=== PATIENT | female | born 1975 | race Caucasian/White ===

== ENCOUNTER 2017-09-12 08:20 | Emergency (ER) | payer OTHER ==
[~2017-09-12] VITALS: Ht 170.2 cm; Wt 134.7 kg
[~2017-09-12 08:20] MED LIST: AUGMENTIN 500-1 EACH PO; CORTISPORIN OTI10 M2 OT; HYDROCODON-ACE1 EAC7 PO; HYDROXYCHLOROQ200 M1; IBUPROFEN 200200 M1 PO; MOBIC15 MG PO; NEURONTIN 300300 M1
[2017-09-12 08:48] LABS: ABSOLUTE EOSINOPHILS 0.1 thou/uL (0.0-0.7); ABSOLUTE MONOCYTES 0.4 thou/uL (0.0-1.2); ABSOLUTE NEUTROPHILS 2.4 thou/uL (1.6-8.1); BASOPHILS 0.7 %; EOSINOPHILS 1.8 %; HEMATOCRIT 39.1 % (37.0-47.0); HEMOGLOBIN 13.3 gm/dL (12.0-15.0); LYMPHOCYTES 26.2 %; MCH 31.3 pg (26.0-34.0); MCHC 33.9 g/dL (28.0-37.0); MCV 92.4 fL (80.0-100.0); MONOCYTES 9.8 %; MPV 9.2 fl. (7.2-11.1); NUCLEATED RBCS 0 /100WBC; PLATELET COUNT* 169 thou/uL (150-400); POLYS 61.5 %; RBC 4.23 mil/uL (4.20-5.00); RDW-CV 13.8 % (10.5-14.5)
[2017-09-12 09:00] LABS: ANION GAP 10 mmol/L (7-16); BUN 22 mg/dL (7-18); CALCIUM 9.1 mg/dL (8.5-10.1); CHLORIDE 105 mmol/L (98-107); CO2 24 mmol/L (21-32); CREATININE 0.7 mg/dL (0.6-1.3); GLUCOSE 97 mg/dL (70-99); POTASSIUM 4.1 mmol/L (3.5-5.1); SODIUM 139 mmol/L (136-145)
[2017-09-12 09:05] LABS: ALBUMIN 3.8 g/dL (3.4-5.0); ALKALINE PHOSPHATASE 51 U/L (46-116); SGOT 16 U/L (15-37); SGPT 28 U/L (30-65); TOTAL BILIRUBIN 0.4 mg/dL (<0.1-1.0); TOTAL PROTEIN 7.3 g/dL (6.4-8.2); TROPONIN-I LEVEL <0.06 ng/mL (<0.06)
[2017-09-12 10:03] VITALS: BP 130/53
--- NOTE | 2017-09-12 17:31 | EKG ---
[place] [address] ELECTROCARDIOGRAM REPORT Name: LUCILLEJANETH WILKINSON [id number] Admission: 09/12/17 Attend Phys: Discharge: 09/12/17 Date of : 73 Report #: [id number] THIS REPORT FOR: //name// [facility] ED Test Date: 2017-09-12 Test Time: 08:38:14 Pat Name: JANETH ADKINS Department: Room: Gender: F Tax Compliance Manager: CASSANDRA : 1975 Requested By: Antonio White Order Number: [id number] MD: Michael Silva Measurements Intervals [place] Rate: 64 P: 12 HI: 174 QRS: 5 QRSD: 98 T: 32 QT: 393 QTc: 406 Interpretive Statements Sinus rhythm No previous ECG available for comparison Electronically Signed On 09-12-2017 17:31:35 CDT by Michael Silva [email or web address] <ELECTRONICALLY SIGNED> By: Michael Silva MD, [facility] 09/12/17 1731 0838 0838 Michael Silva MD, FACC /EPI
== END 2017-09-12 10:03 | disposition home or self-care (01) ==
LOC: M.ERS 08:20
PROVIDERS: Emergency Medicine Emergency Medical Services
DX: I95.1 Orthostatic hypotension (principal); M79.7 Fibromyalgia

== ENCOUNTER 2018-10-31 22:34 | Emergency (ER) | payer OTHER ==
[~2018-10-31] VITALS: Ht 170.2 cm; Wt 139.3 kg
[2018-10-31 22:39] VITALS: BP 149/79
[2018-10-31] MEDS ORDERED: NAPROXEN250 MG PO (22:43)
[2018-10-31] MEDS ORDERED: HYDROXYCHLOROQ200 M1 PO (22:43)
[2018-10-31] MEDS ORDERED: UNICOMPLEX M TA1 TA1 PO (22:43)
[2018-10-31] MEDS ORDERED: NORCO 5-325 TA1 EAC1 PO (23:10)
== END 2018-10-31 23:15 | disposition home or self-care (01) ==
LOC: M.ERS 22:34
DX: M25.562 Pain in left knee (principal); M79.7 Fibromyalgia; Z98.890 Other specified postprocedural states

== ENCOUNTER 2020-04-02 06:53 | Inpatient (IN) | payer BC ==
[~2020-04-02] VITALS: Ht 170.2 cm; Wt 151.0 kg
--- NOTE | ~2020-04-02 | OP ---
[facility] [address] [place] [address] OPERATIVE REPORT Name: JANETH ADKINS Room: [address] IN M.R.#: [id number] Admission: 04/02/20 Attend Phys: Isabela Pineda Discharge: 04/07/20 Date of : 73 Report #: [id number] THIS REPORT FOR: cc: RAN LEWIS KEVIN ~ Kramer, Adam P. DO DICTATED BY: Mohamud Gandara DO On behalf of Dr. Christian Spicer. PREOPERATIVE DIAGNOSIS: Gallstone pancreatitis. POSTOPERATIVE DIAGNOSIS: Gallstone pancreatitis. PROCEDURE PERFORMED: Laparoscopic cholecystectomy with intraoperative cholangiogram. SURGEON: Christian Spicer DO CO-SURGEON: Mohamud Gandara DO, PGY-4 REGISTERED ACCOUNT ADMINISTRATOR: MERLENE Mock student. FINDINGS: Multiple adhesions to the gallbladder, indicating acute cholecystitis. Significant amount of stones and sludge within the gallbladder, free flow of contrast into the common bile duct up into the right and left hepatic ducts and down into the duodenum. No evidence of obstruction. ANESTHESIA: General and local. ESTIMATED BLOOD LOSS: 50 mL. SPECIMEN: Gallbladder. COMPLICATIONS: None. HISTORY OF PRESENT ILLNESS: The patient is a 45-year-old female who was admitted to the hospital with gallstone pancreatitis, found to have hyperbilirubinemia, transaminitis, pancreatitis and underwent MRCP, which showed no ductal obstruction. We elected to proceed with laparoscopic cholecystectomy with intraoperative cholangiogram. Risks, benefits, and alternatives discussed at length and she agreed to proceed with surgery. DESCRIPTION OF PROCEDURE: After consent was obtained, the patient was taken to the operating room and placed in supine position. SCDs applied to bilateral lower extremities, safety belt placed across the patient's waist. The patient [facility] [address] [place] [address] OPERATIVE REPORT Name: JANETH ADKINS Rafael Room: [address] IN [facility].#: [id number] Admission: 04/02/20 Attend Phys: Isabela Pineda Discharge: 04/07/20 Date of : 73 Report #: [id number] underwent bilateral TAP blocks by the anesthesia team. After induction of general endotracheal anesthesia, the patient's abdomen was then prepped and draped in standard sterile fashion. Zosyn had been given prior to surgery. This was continued. Timeout was performed to confirm the patient and procedure. An 11 blade scalpel was used to make an incision above the umbilicus. Electrocautery used for hemostasis and to dissect down to the level of fascia. Once fascia was encountered, it was scored with electrocautery, grasped between 2 Kochers. Two stitches of 0 Vicryl placed on either side of the fascia. Hemostat used to bluntly enter the peritoneum. A 5 mm trocar was inserted into the abdomen. Insufflation was initiated. Intra-abdominal contents were inspected. The gallbladder appeared to be very edematous and inflamed just underneath the edge of the liver. Three more 5 mm trocars were placed in the abdomen from one subxiphoid, 2 in the right upper quadrant. Omentum was swept down. The patient was placed in reverse Trendelenburg. Adhesions were taken off of the gallbladder carefully with electrocautery. Once the adhesions were completely freed, attention was turned towards isolating cystic duct and cystic artery. Starting laterally, the visceral peritoneum was scored with electrocautery and this was carried up to gallbladder on lateral side. Blunt dissection with [place] dissector was used to isolate the cystic duct. Cystic duct appeared to be very long. Using ICG were able to evaluate the cystic duct and could see going into the common bile duct distally well away from our field of surgery. Once the cystic duct was cleared off and attention was turned towards the cystic artery, which was found medial to the duct again using a combination of blunt dissection with the [place] dissector and electrocautery, we were able to free up the cystic artery. A clip was placed in the very distal cystic duct. A ductotomy was created. An Angiocath was inserted in the abdomen and our cholangiogram catheter was passed with ease. Normal saline was flushed without any issue. Fluoroscopy was brought into the field. Pictures were taken indicating correct position. The contrast was injected under live fluoroscopy and contrast was seen free flowing down to the duodenum. The common bile duct, right and left hepatic ducts were all free of any obstruction. At this point, we terminated our fluoroscopy and resumed the position of reverse Trendelenburg. The clip was removed. Catheter was removed from the cystic duct. Three clips were placed on the proximal cystic duct and one more was placed in the distal cystic duct. Cystic duct was clipped. Two clips were placed on the proximal cystic artery, one on the distal cystic artery. This was cut as well. Electrocautery was used to carefully dissect the gallbladder off the bed of the liver. Hemostasis was ensured with electrocautery. Right upper quadrant was irrigated copiously and all fluid was suctioned out. The patient was placed in a neutral position. All trocars were removed under direct visualization. Insufflation was released from the abdomen after the gallbladder was placed in laparoscopic EndoCatch bag and removed from the supraumbilical trocar site. The supraumbilical trocar fascia was reapproximated with 2 stitches of 0 Vicryl in a [id number] fashion. Subcutaneous tissue reapproximated with 3-0 Vicryl. All skin incisions reapproximated with 4-0 Monocryl. All needle, instrument, [facility] [address] [place] [address] OPERATIVE REPORT Name: JANETH ADKINS Rafael Room: [address]#: [id number] Admission: 04/02/20 Attend Phys: Isabela Pineda Discharge: 04/07/20 Date of : 73 Report #: [id number] and sponge counts correct at the end of the case. The patient was then awoken from general anesthesia and transferred to PACU in stable condition. By: 1347 [id number] Spicer DO /nt
[~2020-04-02 06:53] MED LIST changes: +HYDROXYCHLOROQ200 M1 PO; +NAPROXEN250 MG PO; +NORCO 5-325 TA1 EAC1 PO; +UNICOMPLEX M TA1 TA1 PO
[2020-04-02 07:00] VITALS: BP 144/74
[2020-04-02] MEDS ORDERED: ROPINIROLE HCL2 MG (07:05)
[2020-04-02 07:38] LABS: ABSOLUTE LYMPHOCYTES 0.7 thou/uL (0.8-5.3); ABSOLUTE MONOCYTES 0.4 thou/uL (0.0-1.2); ABSOLUTE NEUTROPHILS 4.9 thou/uL (1.6-8.1); BASOPHILS 0.5 %; EOSINOPHILS 0.8 %; HEMATOCRIT 39.7 % (37.0-47.0); HEMOGLOBIN 13.4 gm/dL (12.0-15.0); MCH 29.5 pg (26.0-34.0); MCHC 33.7 g/dL (28.0-37.0); MCV 87.5 fL (80.0-100.0); MONOCYTES 6.5 %; MPV 9.1 fl. (7.2-11.1); NUCLEATED RBCS 0 /100WBC; PLATELET COUNT* 201 thou/uL (150-400); POLYS 80.2 %; RBC 4.54 mil/uL (4.20-5.00); RDW-CV 15.6 % (10.5-14.5); WBC 6.1 thou/uL (4.0-11.0)
[2020-04-02 07:41] LABS: ANION GAP 12 mmol/L (7-16); BUN 10 mg/dL (7-18); CALCIUM 8.9 mg/dL (8.5-10.1); CHLORIDE 105 mmol/L (98-107); CO2 23 mmol/L (21-32); CREATININE 0.7 mg/dL (0.6-1.3); GLUCOSE 114 mg/dL (70-99); POTASSIUM 3.8 mmol/L (3.5-5.1); SODIUM 140 mmol/L (136-145)
[2020-04-02 07:41] LABS: URINE BLOOD 3+ (Negative); URINE CLARITY CLEAR; URINE COLOR YELLOW; URINE GLUCOSE-RANDOM NEGATIVE (Negative); URINE KETONES NEGATIVE (Negative); URINE LEUKOCYTES-REFLEX NEGATIVE (Negative); URINE NITRITE-REFLEX NEGATIVE (Negative); URINE PROTEIN NEGATIVE (Negative); URINE UROBILINOGEN 0.2 E.U./dl (0.2-1.0)
[2020-04-02 07:46] LABS: ALBUMIN 3.7 g/dL (3.4-5.0); ALKALINE PHOSPHATASE 519 U/L (46-116); SGOT 360 U/L (15-37); SGPT 478 U/L (30-65); TOTAL BILIRUBIN 5.6 mg/dL (<0.1-1.0); TOTAL PROTEIN 7.6 g/dL (6.4-8.2)
[2020-04-02 07:56] LABS: LIPASE > 30000 U/L (73-393)
[2020-04-02 08:08] LABS: URINE BILIRUBIN 2+ (Negative)
[2020-04-02 08:10] LABS: ICTOTEST (BILI CONFIRMATORY) Positive (Negative)
[2020-04-02 08:11] LABS: BACTERIA-REFLEX 1-9 Few /HPF (None Seen); CASTS None Seen /LPF (None Seen); CRYSTALS None Seen /LPF (None Seen); SQUAMOUS 0-3 Few /LPF (0-3); URINE RBC 0-2 Rare /HPF (0-2); URINE WBC-REFLEX 0-5 Rare /HPF (0-5)
[2020-04-02 09:58] VITALS: BP 142/76
[2020-04-02 10:20] VITALS: BP 173/94
--- NOTE | 2020-04-02 13:01 | EKG ---
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
[2020-04-02 16:01] VITALS: BP 135/63
--- NOTE | 2020-04-02 16:32 | NUR ---
PT.LIVES WITH HER S.O. SHE WORKS OUTSIDE THE HOME. NO USE OF DME OR HX OF HH OR SNF. NO DISCHARGE NEEDS IDENTIFIED.
--- NOTE | 2020-04-02 18:40 | NUR ---
PATIENT ARRIVED FROM ER THIS AFTERNOON. HISTORY, ASSESSMENT AND VITALS COMPLETED AND DOCUMENTED. PATIENT HAS COMPLAINTS OF ABDOMINAL PAIN, TREATED ADEQUATELY WITH FENTANYL. PATIENT HAD NAUSEA WITH SMALL AMOUNT OF BLOOD TINGED MUCOUS VOMIT. PATIENT IS NPO. PATIENT IS UP AD QUINTON IN ROOM. PATIENT DENIES ANY NEEDS AT THIS TIME. CALL LIGHT WITHIN REACH.
[2020-04-02 20:34] VITALS: BP 131/62
[2020-04-03 04:22] LABS: HEMATOCRIT 34.3 % (37.0-47.0); HEMOGLOBIN 11.6 gm/dL (12.0-15.0); MCH 29.4 pg (26.0-34.0); MCHC 33.7 g/dL (28.0-37.0); MCV 87.3 fL (80.0-100.0); MPV 9.4 fl. (7.2-11.1); RBC 3.93 mil/uL (4.20-5.00); RDW-CV 16.1 % (10.5-14.5); WBC 4.4 thou/uL (4.0-11.0)
[2020-04-03 04:51] LABS: ALBUMIN 3.2 g/dL (3.4-5.0); CALCIUM 8.5 mg/dL (8.5-10.1); CREATININE 0.6 mg/dL (0.6-1.3); POTASSIUM 3.4 mmol/L (3.5-5.1); TOTAL PROTEIN 6.8 g/dL (6.4-8.2)
--- NOTE | 2020-04-03 04:59 | NUR ---
PT A&O, VSS ON ROOM AIR, PT UP AD QUINTON, IV FLUIDS INFUSING ORDERED, PT NPO, PAIN MEDS REQUESTED AND GIVEN ORDERED. PT SLEEPING WELL, HOURLY ROUNDINGS COMPLETE, WILL CONTINUE TO MONITOR.
[2020-04-03 07:45] VITALS: BP 127/68
[2020-04-03 09:55] LABS: MAGNESIUM 2.1 mg/dL (1.8-2.4); PHOSPHORUS* 2.8 mg/dL (2.5-4.9)
[2020-04-03 16:59] VITALS: BP 135/70
--- NOTE | 2020-04-03 18:27 | NUR ---
PATIENT CURRENTLY SITTING UP IN RECLINER. PATIENT HAS REMAINED A&OX4 THIS SHIFT, HAS BEEN UP AD QUINTON. PATIENT WAS ADVANCED TO CLEAR LIQUID DIET THIS SHIFT, WHICH SHE IS TOLERATING WELL. IV FLUIDS INFUSING ORDERED. PATIENT REPORTS LARGE FORMED BM THIS EVENING. HAS DENIED ANY N/V DURING SHIFT. CALL LIGHT AND PERSONAL ITEMS WITHIN REACH.
[2020-04-03 22:00] VITALS: BP 115/52
[2020-04-04 04:42] LABS: HEMATOCRIT 32.1 % (37.0-47.0); HEMOGLOBIN 10.7 gm/dL (12.0-15.0); MCH 29.2 pg (26.0-34.0); MCHC 33.3 g/dL (28.0-37.0); MCV 87.5 fL (80.0-100.0); MPV 9.3 fl. (7.2-11.1); RBC 3.67 mil/uL (4.20-5.00); RDW-CV 15.5 % (10.5-14.5)
[2020-04-04 04:50] LABS: ALBUMIN 2.8 g/dL (3.4-5.0); CREATININE 0.7 mg/dL (0.6-1.3); MAGNESIUM 1.8 mg/dL (1.8-2.4); PHOSPHORUS* 2.3 mg/dL (2.5-4.9); POTASSIUM 3.5 mmol/L (3.5-5.1); TOTAL BILIRUBIN 1.7 mg/dL (<0.1-1.0); TOTAL PROTEIN 6.4 g/dL (6.4-8.2)
--- NOTE | 2020-04-04 06:38 | NUR ---
PT SLEPT ON AND OFF OVERNIGHT. RECEIVING IV PAIN MED PRN FOR CO ABD PAIN WITH GOOD RESULT. NO N/V. UP AD QUINTON IN ROOM VOIDING WITHOUT DIFFICULTY. RAC IVF INFUSING PER PUMP WITHOUT DIFFICULTY, ABX GIVEN ORDERED. AM LABS DRAWN. AOX4, ABLE TO USE CALL LITE AND MAKE NEEDS KNOWN. GI AND SURGERY FOLLOWING.
--- NOTE | 2020-04-04 14:31 | CON ---
[address] [address] CONSULTATION Name: JANETH ADKINS Room: [address] IN M.R.#: [id number] Admission: 04/02/20 Attend Phys: Isabela Pineda Discharge: Date of : 73 Report #: [id number] THIS REPORT FOR: cc: RAN LEWIS KEVIN ~ Osvaldo Mo MD DATE OF SERVICE: 04/03/2020 HISTORY OF PRESENT ILLNESS: This is a pleasant 45-year-old female with past medical history significant for obesity, lupus and fibromyalgia, who is presenting with abdominal pain and back pain of 1 week duration. The patient reports the abdominal pain had been present with increasing severity over the last 10 days. The patient reports yesterday morning, the pain was 10/10. She could not bear it anymore and she presented to the hospital with reports associated nausea, no vomiting. She denies similar episodes of pain in the past. The patient also reports that she had orange colored urine and lightening of color of her stool. PAST MEDICAL HISTORY: Obesity, lupus, fibromyalgia. PAST SURGICAL HISTORY: Three C-sections and laparoscopy for abdominal pain. SOCIAL HISTORY: The patient smokes about 6 cigarettes per day. Denies alcohol or recreational drug use. FAMILY HISTORY: Both her maternal grandparents had pancreatic cancer. REVIEW OF SYSTEMS: A comprehensive 10-point review of systems is negative except for what was mentioned in the HPI. PHYSICAL EXAMINATION: GENERAL: The patient is alert, awake, oriented x 3. VITAL SIGNS: Temperature 36.2, pulse rate 63, blood pressure 127/68, respiratory rate 18. The patient is alert, awake, oriented x 3. HEENT: Pupils are equal, round, reactive to light and accommodation. Mucous membranes are moist. There is no congestion. LUNGS: Clear to auscultation bilaterally. CARDIOVASCULAR: Rate and rhythm regular. S1, S2 present. ABDOMEN: Soft. There is no distention, guarding or rigidity. EXTREMITIES: Warm, well perfused. There is no edema. SKIN: Warm and dry. LABORATORY DATA: Hemoglobin 11.6, hematocrit 34.3, platelet count 167, WBC count 4.4. Sodium 144, potassium 3.4, chloride 109, bicarbonate 23, BUN 6, [place] [address] CONSULTATION Name: JANETH ADKINS Room: [address]#: [id number] Admission: 04/02/20 Attend Phys: Isabela Pineda Discharge: Date of : 73 Report #: [id number] creatinine 0.6, total bilirubin 0.2 on presentation. Total bilirubin was 5.6; AST 309, down from 360; ALT 442, down from 478; alkaline phosphatase 436, down from 519. Lipase on presentation greater than 30,000, today ____. IMAGING: MRCP abdomen demonstrates extrahepatic biliary ductal dilation up to 8 mm. No obvious filling defects to suggest stone, mass or stricture. ASSESSMENT AND PLAN: Pleasant 45-year-old female with obesity, who is presenting with her first episode of gallstone pancreatitis. 1. Acute pancreatitis, mild in severity secondary to gallstones. Continue fluids at 200 mL per hour. I would advance patient to clear liquid diet at this time. No evidence of choledocholithiasis. I would defer ERCP for now. I would, however, recommend getting an endoscopic ultrasound in 3-4 weeks' time. Repeat CMP tomorrow. Consult surgery for interval cholecystectomy. <ELECTRONICALLY SIGNED> By: Osvaldo Mo MD 04/04/20 1431 1130 [id number] Mo MD /nt
--- NOTE | 2020-04-04 19:06 | NUR ---
PT A&OX4 VSS. PT UP AD QUINTON, GAIT STEADY. NS AND IV ABX. IV TO RAC PATENT, DRESSING CHANGED THIS AFTERNOON. PT UP TO SHOWER THIS AFTERNOON. SIG OTHER VISITED TODAY. GI CONSULTED. PRN IV FENTANYL ADMINISTERED REQUESTED AFTER HER SHOWER, PT REPORTED RELIEF. PT DENIES NAUSEA/VOMITING THIS SHIFT. PT REMAINS ON ROOM AIR. PT RESTS IN BED WITH CALL LIGHT IN REACH.
[2020-04-04 20:43] VITALS: BP 148/75
[2020-04-05 05:19] LABS: HEMATOCRIT 32.5 % (37.0-47.0); MCH 29.7 pg (26.0-34.0); MCHC 33.9 g/dL (28.0-37.0); MCV 87.8 fL (80.0-100.0); MPV 9.5 fl. (7.2-11.1); RBC 3.7 mil/uL (4.20-5.00); RDW-CV 15.2 % (10.5-14.5)
[2020-04-05 05:34] LABS: ALBUMIN 2.7 g/dL (3.4-5.0); CREATININE 0.6 mg/dL (0.6-1.3); MAGNESIUM 1.8 mg/dL (1.8-2.4); PHOSPHORUS* 2.9 mg/dL (2.5-4.9); POTASSIUM 3.2 mmol/L (3.5-5.1); TOTAL BILIRUBIN 1.6 mg/dL (<0.1-1.0); TOTAL PROTEIN 6.5 g/dL (6.4-8.2)
--- NOTE | 2020-04-05 06:53 | NUR ---
PT SLEPT OFF AND ON OVERNIGHT. UP AD QUINTON IN ROOM. IVF INFUSING PER PUMP, ABX GIVEN ORDERED. RECEIVING IV PAIN MED X2 OVERNIGHT FOR CO ABD PAIN WITH GOOD RELIEF. TOLERATING CLEARS WITHOUT N/V. AM LABS. ONE DOSE POTASSIUM GIVEN THIS MORNING. ABLE TO USE CALL LITE AND MAKE NEEDS KNOWN.
--- NOTE | 2020-04-05 09:45 | NUR ---
Nutrition: Pt admitted with acute pancreatitis. Lipase 450, BG WNL, alb 2.7, prealb 12.2. Tolerating CLD, 100% consumed, no N/V. Loose BMs. Wt 333#. Recommend advancing diet to goal of Low Fat with a CHO control. No other nutrition interventions at this time. Mild risk.
--- NOTE | 2020-04-05 11:25 | NUR ---
PER NURSING, POTENTIAL FOR PT.TO HAVE LAP KENNY TOMORROW.
[2020-04-05 16:00] VITALS: BP 150/78
--- NOTE | 2020-04-05 17:30 | NUR ---
PT A&OX4 PT UP AD QUINTON, GAIT STEADY. PO PRN PAIN MEDICATION ADMINISTERED REQUESTED. PT REPORTS RELIEF OF PAIN. PT UP TO RECLINER. IV TO RAC PATENT, NS RUNNING AT 200ML/HR ORDERED. IV ABX CONTINUED THIS SHIFT. PT TOLERATES PO INTAKE W/O DIFFICULTY. PT REMAINS CONTINENT OF B/B. PT RESTS IN ROOM WITH CALL LIGHT IN REACH.
[2020-04-05 19:20] VITALS: BP 141/84
--- NOTE | 2020-04-06 03:45 | NUR ---
PT A&O, VSS ON ROOM AIR, PT UP AD QUINTON, IV FLUIDS INFUSING ORDERED, PAIN MED REQUESTED AND GIVEN ORDERED, PT NPO SINCE MIDNIGHT. PT SLEEPING WELL, WILL CONTINUE TO MONITOR.
[2020-04-06 05:50] LABS: ABSOLUTE LYMPHOCYTES 0.8 thou/uL (0.8-5.3); ABSOLUTE MONOCYTES 0.2 thou/uL (0.0-1.2); ABSOLUTE NEUTROPHILS 1.9 thou/uL (1.6-8.1); BASOPHILS 0.8 %; EOSINOPHILS 1.6 %; HEMATOCRIT 30.5 % (37.0-47.0); HEMOGLOBIN 10.3 gm/dL (12.0-15.0); LYMPHOCYTES 27.3 %; MCH 29.3 pg (26.0-34.0); MCHC 33.7 g/dL (28.0-37.0); MCV 86.9 fL (80.0-100.0); MONOCYTES 6.3 %; MPV 9.7 fl. (7.2-11.1); NUCLEATED RBCS 0 /100WBC; PLATELET COUNT* 184 thou/uL (150-400); RBC 3.52 mil/uL (4.20-5.00)
[2020-04-06 06:05] LABS: PREALBUMIN 11.1 mg/dL (18.0-35.7)
[2020-04-06 06:10] LABS: ALBUMIN 2.6 g/dL (3.4-5.0); CALCIUM 8.5 mg/dL (8.5-10.1); CREATININE 0.6 mg/dL (0.6-1.3); POTASSIUM 3.7 mmol/L (3.5-5.1); TOTAL BILIRUBIN 1.1 mg/dL (<0.1-1.0); TOTAL PROTEIN 6.3 g/dL (6.4-8.2)
[2020-04-06 07:15] VITALS: BP 129/74
[2020-04-06 09:50] VITALS: BP 129/74
[2020-04-06 10:23] VITALS: BP 129/74
[2020-04-06 15:13] VITALS: BP 122/65
--- NOTE | 2020-04-06 15:14 | NUR ---
PT RETURNED FROM SURGERY. PT ALERT AND ORIENTED. PT C/O PAIN, MEDS GIVEN ORDERED. PT RESTING IN BED.
--- NOTE | 2020-04-06 16:49 | NUR ---
PT REMAINED ALERT AND ORIENTED. PT RESTING IN BED. PT HAS VOIDED POST OP. INCISIONS C/D/I. PAIN MEDS GIVEN ORDERED. FALL RISK PRECAUTIONS IN PLACE. HOURLY ROUNDING COMPLETED.
[2020-04-06 20:06] VITALS: BP 138/66
[2020-04-07 04:32] LABS: ABSOLUTE BASOPHILS 0.1 thou/uL (0.0-0.2); ABSOLUTE LYMPHOCYTES 0.8 thou/uL (0.8-5.3); ABSOLUTE MONOCYTES 0.2 thou/uL (0.0-1.2); ABSOLUTE NEUTROPHILS 2.9 thou/uL (1.6-8.1); BASOPHILS 1.4 %; HEMATOCRIT 30.6 % (37.0-47.0); HEMOGLOBIN 10.4 gm/dL (12.0-15.0); LYMPHOCYTES 19.9 %; MCH 29.6 pg (26.0-34.0); MCHC 33.9 g/dL (28.0-37.0); MCV 87.2 fL (80.0-100.0); MONOCYTES 5.7 %; MPV 9.4 fl. (7.2-11.1); NUCLEATED RBCS 0 /100WBC; PLATELET COUNT* 207 thou/uL (150-400); RBC 3.51 mil/uL (4.20-5.00); RDW-CV 14.6 % (10.5-14.5); WBC 3.9 thou/uL (4.0-11.0)
--- NOTE | 2020-04-07 04:49 | NUR ---
PATIENT SLEPT WELL DURING THIS SHIFT. PT USES CALL LIGHT APPROPRIATELY FOR ASSISTEANCE TO BATHROOM. SCD'S IN PLACE BILATERALLY. PT WITH FOUR LAP SITES; C/D/I; SEALED WITH DURABOND. NO DRAINAGE NOTED. PT WITH FLUIDS INFUSING IN RT AC. FREQUENTLY USED ITEMS AND CALL LIGHT WITHN REACH. SIDERAILS UPX2. WILL CONTINUE TO MONITOR.
[2020-04-07 05:01] LABS: ALBUMIN 2.6 g/dL (3.4-5.0); CALCIUM 8.9 mg/dL (8.5-10.1); CREATININE 0.6 mg/dL (0.6-1.3); POTASSIUM 3.7 mmol/L (3.5-5.1); TOTAL BILIRUBIN 0.9 mg/dL (<0.1-1.0); TOTAL PROTEIN 6.3 g/dL (6.4-8.2)
[2020-04-07 08:30] VITALS: BP 146/71
[2020-04-07] MEDS ORDERED: OXYCODONE HCL 55 MG PO (11:27)
[2020-04-07 13:02] VITALS: BP 146/71
--- NOTE | 2020-04-07 14:35 | NUR ---
PATIENT DISCHARGED TO HOME. DISCHARGE PAPERS REVIEWED AND SIGNED. PRESCRIPTION TRANSMITTED TO PHARMACY AND INFORMATION SHEETS GIVEN. IV REMOVED. PATIENT DENIES ANY FURTHER NEEDS. PATIENT TAKEN BY WHEELCHAIR TO EXIT. LEFT WITH BOYFRIEND.
[2020-04-07 15:32] VITALS: BP 146/71
--- NOTE | 2020-04-08 16:06 | PATH ---
[address] [address] PATHOLOGY RPT PROCEDURE Name: BENITEZ ADKINS Rafael Room: [address] IN .R.#: [id number] Admission: 04/02/20 Date of : 73 Discharge: 04/07/20 Report #: [id number] Path Case #: [id number] [facility] Accession Number: [id number] . 01 Material submitted: . gallbladder - GALLBLADDER WITH CONTENTS . 01 Clinical history: . PANCREATITIS CHOLEYSTITIS . 02 Diagnosis: Gallbladder with contents: - Chronic and acute erosive cholecystitis with mural fibrosis and cholelithiasis. (MAIKEL:pit 04/08/2020) QTP 04/08/2020 1336 Local . 02 Electronically signed: . Juvenal Ching MD, Pathologist NPI- [id number] . 01 Gross description: . The specimen is received in formalin, labeled "Benitez Adkins, gallbladder with contents". Received is an intact gallbladder measuring 11.1 x 5.3 x 3.5 cm in greatest dimensions displaying a pink-cullen serosal surface. Opening the specimen reveals a velvety to smooth, bile-stained mucosa with a gallbladder wall thickness of 0.1 cm. Calculi are present displaying a bright yellow and multifaceted appearance, and no masses or lesions are noted grossly. Debt And Budget Counselor sections, to include the proximal margin, are submitted in cassette A1. (CAA; 04/07/2020) QAC/QAC 04/07/2020 1559 Local . 02 Pathologist provided ICD-10: K80.12 . 02 CPT . 265833 Specimen Comment: A courtesy copy of this report has been sent to [phone] Specimen Comment: [phone] Specimen Comment: Report sent to / DR LEW Performed at: [address] [id number] MD Estuardo العراقي MD Phone: [phone] Performed at: 02 [place] [address] PATHOLOGY RPT PROCEDURE Name: LUCILLEBENITEZ WILKINSON Room: [address] IN M.R.#: [id number] Admission: 04/02/20 Date of : 73 Discharge: 04/07/20 Report #: [id number] Path Case #: [id number] [facility] [address] JUAN Medrano [id number] MD Juvenal Ching MD Phone: [phone]
== END 2020-04-07 14:35 | disposition home or self-care (01) | DRG 418 ==
LOC: M.ERS 06:53 → M.3W 08:41 → M.TBA-ER 08:41 → M.3W 10:11
PROVIDERS: Family Medicine; Internal Medicine; Surgery; ADMIT Internal Medicine; ATTEND Internal Medicine
PROC: BF121ZZ Fluoroscopy of Gallbladder using Low Osmolar Contrast (ICD-10-PCS; principal; 2020-04-02)
PROC: 0FT44ZZ Resection of Gallbladder, Percutaneous Endoscopic Approach (ICD-10-PCS; principal; 2020-04-02)
DX: K85.10 Biliary acute pancreatitis without necrosis or infection (principal); Z68.43 Body mass index [BMI] 50.0-59.9, adult; F17.210 Nicotine dependence, cigarettes, uncomplicated; K75.9 Inflammatory liver disease, unspecified; M79.7 Fibromyalgia; E80.6 Other disorders of bilirubin metabolism; E66.01 Morbid (severe) obesity due to excess calories; K80.20 Calculus of gallbladder without cholecystitis without obstruction; Z20.822 Contact with and (suspected) exposure to COVID-19; Z23 Encounter for immunization; Z80.0 Family history of malignant neoplasm of digestive organs